=== PATIENT | male | born 1965 | race Two or more races ===

== ENCOUNTER 2017-01-12 09:42 | Emergency (ER) | payer OTHER ==
[2017-01-12 11:45] VITALS: BP 136/84
== END 2017-01-12 11:45 | disposition home or self-care (01) ==
LOC: ED 09:42
DX: S83.91XA Sprain of unspecified site of right knee, initial encounter (principal); E66.01 Morbid (severe) obesity due to excess calories; E11.9 Type 2 diabetes mellitus without complications; I10 Essential (primary) hypertension; W50.2XXA Accidental twist by another person, initial encounter; Y93.89 Activity, other specified; Y99.8 Other external cause status; Y92.89 Other specified places as the place of occurrence of the external cause